=== PATIENT | female | born 1990 | race Hispanic/Latino ===

== ENCOUNTER 2021-07-05 18:01 | Emergency (ER) | payer OTHER ==
[~2021-07-05] VITALS: Ht 175.3 cm; Wt 54.4 kg
[2021-07-05] MEDS ORDERED: ACETAMINOPHEN 325 MG TAB PO ONE (20:00)
[2021-07-05] MEDS ORDERED: ACETAMINOPHEN 325 MG TAB ONE (20:06)
== END 2021-07-05 20:02 | disposition home or self-care (01) ==
LOC: ER 18:15
DX: S00.83XA Contusion of other part of head, initial encounter (principal); S40.021A Contusion of right upper arm, initial encounter; Y04.2XXA Assault by strike against or bumped into by another person, initial encounter
CPT/HCPCS: 36415; 70450; 70486; 82948; 99283